=== PATIENT | female | born 1990 | race Caucasian/White ===

== ENCOUNTER 2021-08-13 10:45 | Inpatient (IN) | payer MEDICAID ==
[~2021-08-13] VITALS: Ht 157.5 cm; Wt 48.8 kg
[2021-08-13] MEDS ORDERED: LORazepam 2 MG/ML VIAL IM ONE ×2 (11:15→12:30)
[2021-08-13] MEDS ORDERED: HALOPERIDOL LACTATE 5 MG/ML VIAL IM ONE (11:15)
[2021-08-13] MEDS ORDERED: DiphenhydrAMINE HCL 50 MG/ML VIAL IM ONE (11:15)
[2021-08-13] MEDS ORDERED: PERMETHRIN 5% 60 GM CREAM TP ONE (12:30)
[2021-08-13 12:47] LABS: ALANINE AMINOTRANSFERASE 24 U/L (12-78); ALBUMIN 3.1 g/dL (3.4-5.0); ALKALINE PHOSPHATASE 103 U/L (46-116); ANION GAP 19 mmol/L (8-16); ASPARTATE AMINOTRANSFERASE 57 U/L (15-37); BILIRUBIN,TOTAL 0.6 mg/dL (0.1-1.0); CARBON DIOXIDE 18 mmol/L (22-29); CHLORIDE 99 mmol/L (98-107); CREATININE 0.76 mg/dL (0.60-1.30); GLUCOSE,RANDOM 62 mg/dL (70-110); SODIUM SERUM 136 mmol/L (136-145); TOTAL PROTEIN, SERUM 7.1 g/dL (6.4-8.2); UREA NITROGEN, BLOOD 4 mg/dL (7-18)
[2021-08-13 12:49] LABS: GLOMERULAR FILTR. RATE CALC > 60 mL/min (>60)
[2021-08-13 12:56] LABS: COVID AG,FIA SOURCE NASOPHARYNGEAL
[2021-08-13 13:32] LABS: BASOPHILS % (AUTO) 0.7 % (0.0-2.0); EOSINOPHILS % (AUTO) 5.6 % (1.0-6.0); HEMATOCRIT 42.2 % (36-46); HEMOGLOBIN 14.3 g/dL (12.0-16.0); LYMPHOCYTES # (AUTO) 2.6 K/uL (1.0-4.8); LYMPHOCYTES % (AUTO) 21.4 % (22.0-44.0); MEAN CORPUSCULAR HEMOGLOBIN 32.7 pg (26.0-34.0); MEAN CORPUSCULAR HGB CONC 33.9 G/dL (31.0-37.0); MEAN CORPUSCULAR VOLUME 96 fL (80-100); MONOCYTES # (AUTO) 0.8 K/uL (0.1-1.0); MONOCYTES % (AUTO) 6.3 % (2.0-9.0); PLATELET COUNT (AUTO) 466 K/uL (150-450); RED BLOOD CELL COUNT(AUTO) 4.38 MIL/uL (4.00-5.20); RED CELL DISTRIBUTION WIDTH 14.7 % (11.5-14.5)
[2021-08-13 17:21] LABS: GLUCOMETER DEV NAME(LOC) ERT.5; GLUCOSE,POINT OF CARE 93 MG/DL (70-110)
[2021-08-13] MEDS ORDERED: OMEPRAZOLE 20 MG CAPSULE PO PRN (20:45)
[2021-08-13] MEDS ORDERED: LOPERAMIDE HCL 2 MG CAPSULE PO PRN (20:45)
[2021-08-13] MEDS ORDERED: IBUPROFEN 600 MG TABLET PO PRN (20:45)
[2021-08-13] MEDS ORDERED: ALBUTEROL SULFATE HFA 90 MCG/PUFF 8 GM INHALER IH PRN (20:45)
[2021-08-13] MEDS ORDERED: ONDANSETRON HCL 4 MG TABLET PO PRN (20:45)
[2021-08-13] MEDS ORDERED: BACITRACIN 28 GM OINTMENT TP PRN (20:45)
[2021-08-13] MEDS ORDERED: DOCUSATE SODIUM 100 MG CAPSULE PO PRN (20:45)
[2021-08-13] MEDS: DIVALPROEX SODIUM 500 MG DR TABLET PO SCH (20:45)
[2021-08-13] MEDS ORDERED: PETROLATUM,WHITE 28 GM JELLY TP PRN (20:45)
[2021-08-13] MEDS ORDERED: CloNIDine HCL 0.1 MG TABLET PO PRN (20:45)
[2021-08-13] MEDS ORDERED: BENZOCAINE/MENTHOL LOZENGE PO PRN (20:45)
[2021-08-13] MEDS ORDERED: MAGNESIUM HYDROXIDE SUSPENSION 30 ML UDCUP PO PRN (20:45)
[2021-08-13] MEDS ORDERED: ACETAMINOPHEN 325 MG TABLET PO PRN (20:45)
[2021-08-13] MEDS ORDERED: MAG HYDROX/AL HYDROX/SIMETH ES 30 ML SUSPENSION UDCUP PO PRN (20:45)
[2021-08-14] MEDS: DIVALPROEX SODIUM 500 MG DR TABLET PO SCH ×2 (08:44→20:09)
[2021-08-14] MEDS: RisperiDONE 1 MG TABLET PO SCH ×2 (08:44→16:02)
[2021-08-14] MEDS: LORazepam 2 MG TABLET PO PRN (16:03)
[2021-08-15] MEDS: HALOPERIDOL 5 MG TABLET PO PRN ×2 (00:56→09:56)
[2021-08-15] MEDS: LORazepam 2 MG TABLET PO PRN ×3 (00:57→15:40)
[2021-08-15] MEDS ORDERED: PERMETHRIN 1% 60 ML LOTION TP ONE (07:00)
[2021-08-15] MEDS: DIVALPROEX SODIUM 500 MG DR TABLET PO SCH ×2 (09:58→20:16)
[2021-08-15] MEDS: RisperiDONE 1 MG TABLET PO SCH ×2 (09:58→17:19)
[2021-08-16] MEDS: DIVALPROEX SODIUM 500 MG DR TABLET PO SCH ×2 (08:14→21:03)
[2021-08-16] MEDS: RisperiDONE 1 MG TABLET PO SCH ×2 (08:15→16:04)
[2021-08-16] MEDS: LORazepam 2 MG TABLET PO PRN (11:02)
[2021-08-16] MEDS: HALOPERIDOL 5 MG TABLET PO PRN (11:02)
[2021-08-16] MEDS ORDERED: PERMETHRIN 1% 60 ML LOTION TP ONE (11:15)
[2021-08-16 16:10] VITALS: BP 126/72
[2021-08-17] MEDS: LORazepam 2 MG TABLET PO PRN ×2 (05:09→09:45)
[2021-08-17] MEDS: DIVALPROEX SODIUM 500 MG DR TABLET PO SCH ×2 (09:45→20:31)
[2021-08-17] MEDS: HALOPERIDOL 5 MG TABLET PO PRN (09:45)
[2021-08-17] MEDS: RisperiDONE 1 MG TABLET PO SCH ×2 (09:45→16:17)
[2021-08-17] MEDS ORDERED: RISP1TAB98 PO (16:04)
[2021-08-17] MEDS ORDERED: DIVA-112 PO (16:04)
[2021-08-18] MEDS: HALOPERIDOL 5 MG TABLET PO PRN (08:06)
[2021-08-18] MEDS: LORazepam 2 MG TABLET PO PRN (08:06)
[2021-08-18] MEDS: DIVALPROEX SODIUM 500 MG DR TABLET PO SCH (08:06)
[2021-08-18] MEDS: RisperiDONE 1 MG TABLET PO SCH (08:06)
== END 2021-08-18 14:20 | disposition home or self-care (01) | DRG 750 ==
LOC: EMS 10:49 → 3EC 17:56 → EDBD 17:56
PROVIDERS: ADMIT Psychiatry & Neurology Psychiatry; ATTEND Psychiatry & Neurology Psychiatry
DX: F25.9 Schizoaffective disorder, unspecified (principal); Z59.00 Homelessness unspecified; B86 Scabies; F10.129 Alcohol abuse with intoxication, unspecified; F17.210 Nicotine dependence, cigarettes, uncomplicated; F31.9 Bipolar disorder, unspecified; F41.9 Anxiety disorder, unspecified; G47.00 Insomnia, unspecified; K59.00 Constipation, unspecified; Z20.822 Contact with and (suspected) exposure to COVID-19; Y90.9 Presence of alcohol in blood, level not specified; Z72.89 Other problems related to lifestyle
CPT/HCPCS: 80053; 82962; 84703; 85025; 99291; G0480; J1200; J1630; J2060

== ENCOUNTER 2021-08-23 18:53 | Emergency (ER) | payer MEDICAID ==
[~2021-08-23] VITALS: Ht 152.4 cm; Wt 57.3 kg
[~2021-08-23 18:53] MED LIST: DIVA-112 PO; RISP1TAB98 PO
[2021-08-23] MEDS ORDERED: HALOPERIDOL LACTATE 5 MG/ML VIAL IM ONE (19:15)
[2021-08-23] MEDS ORDERED: LORazepam 2 MG/ML VIAL IM ONE (19:15)
[2021-08-23] MEDS ORDERED: DiphenhydrAMINE HCL 50 MG/ML VIAL IM ONE (19:15)
[2021-08-23 19:19] VITALS: BP 119/64
== END 2021-08-24 00:34 | disposition home or self-care (01) ==
LOC: EMS 18:54 → ICU 20:59 → UNDOADMIN 20:59 → EMS 08-24 00:34
DX: F15.959 Other stimulant use, unspecified with stimulant-induced psychotic disorder, unspecified (principal); F31.9 Bipolar disorder, unspecified; F20.9 Schizophrenia, unspecified
CPT/HCPCS: 96372; 99284; J1200; J1630; J2060

== ENCOUNTER 2021-10-15 11:49 | Emergency (ER) | payer MEDICAID ==
[~2021-10-15] VITALS: Ht 149.9 cm; Wt 50.0 kg
[2021-10-15 13:13] LABS: BASOPHILS % (AUTO) 0.6 % (0.0-2.0); EOSINOPHILS % (AUTO) 1.2 % (1.0-6.0); HEMATOCRIT 42.6 % (36-46); HEMOGLOBIN 14.2 g/dL (12.0-16.0); LYMPHOCYTES # (AUTO) 1.7 K/uL (1.0-4.8); LYMPHOCYTES % (AUTO) 21.8 % (22.0-44.0); MEAN CORPUSCULAR HEMOGLOBIN 32.5 pg (26.0-34.0); MEAN CORPUSCULAR HGB CONC 33.3 G/dL (31.0-37.0); MEAN CORPUSCULAR VOLUME 98 fL (80-100); MONOCYTES # (AUTO) 0.5 K/uL (0.1-1.0); NEUTROPHILS # (AUTO) 5.5 K/uL (1.8-7.7); NEUTROPHILS % (AUTO) 70.4 % (40.0-70.0); PLATELET COUNT (AUTO) 422 K/uL (150-450); RED BLOOD CELL COUNT(AUTO) 4.37 MIL/uL (4.00-5.20); RED CELL DISTRIBUTION WIDTH 14.8 % (11.5-14.5)
[2021-10-15 13:36] LABS: ANION GAP 13 mmol/L (8-16); CALCIUM, TOTAL 9.2 mg/dL (8.8-10.5); CARBON DIOXIDE 23 mmol/L (22-29); CHLORIDE 103 mmol/L (98-107); GLOMERULAR FILTR. RATE CALC > 60 mL/min (>60); GLUCOSE,RANDOM 86 mg/dL (70-110); POTASSIUM 3.7 mmol/L (3.5-5.1); SODIUM SERUM 139 mmol/L (136-145); UREA NITROGEN, BLOOD 7 mg/dL (7-18)
[2021-10-15 13:42] LABS: ALANINE AMINOTRANSFERASE 29 U/L (12-78); ALBUMIN 3.6 g/dL (3.4-5.0); ALKALINE PHOSPHATASE 95 U/L (46-116); ASPARTATE AMINOTRANSFERASE 17 U/L (15-37); BILIRUBIN,TOTAL 0.7 mg/dL (0.1-1.0); TOTAL PROTEIN, SERUM 7.6 g/dL (6.4-8.2)
[2021-10-15 15:09] LABS: VALPROIC ACID < 3 mcg/mL (50-100)
[2021-10-15 15:45] VITALS: BP 139/91
== END 2021-10-15 16:09 | disposition home or self-care (01) ==
LOC: EMS 11:49
DX: F15.90 Other stimulant use, unspecified, uncomplicated (principal); F20.9 Schizophrenia, unspecified; F31.9 Bipolar disorder, unspecified; Z79.899 Other long term (current) drug therapy
CPT/HCPCS: 36415; 80053; 80164; 84703; 85025; 99284; G0480